=== PATIENT | female | born 1995 | race Caucasian/White ===

== ENCOUNTER 2018-06-24 14:27 | Emergency (ER) | payer SELFPAY ==
[~2018-06-24] VITALS: Wt 43.9 kg
--- NOTE | 2018-06-24 16:45 | ERD ---
ER Documentation Chief Complaint Chief Complaint R ARM PAIN AFTER FALL YETSERDAY HPI This is a 22-year-old otherwise healthy female presents for evaluation of her right arm injury, that she sustained yesterday she had a mechanical fall, was able to range her arm, however she had an abrasion over her right forearm, and feels pain along her elbow, she had no lacerations. She denies any numbness or tingling ROS All systems reviewed and are negative except as per history of present illness. Allergies Allergies: Coded Allergies: No Known Allergy (Unverified , 06/24/18) PMhx/Soc Medical and Surgical Hx: pt denies Medical Hx, pt denies Surgical Hx Hx Alcohol Use: No Hx Substance Use: No Hx Tobacco Use: No Smoking Status: Never smoker Physical Exam Vitals Vital Signs Date Temp Pulse Resp B/P (MAP) Pulse Ox O2 O2 Flow FiO2 Time Delivery Rate 06/24/18 98.3 78 18 113/65 99 14:30 (81) Physical Exam Const: No acute distress Head: Atraumatic Eyes: Normal Conjunctiva ENT: Normal External Ears, Nose and Mouth. Neck: Full range of motion. No meningismus. Resp: Clear to auscultation bilaterally Cardio: Regular rate and rhythm, no murmurs Abd: Soft, non tender, non distended. Normal bowel sounds Skin: No petechiae or rashes Back: No midline or flank tenderness Ext: Upper Extremity -right: Skin: No laceration, superficial abrasion noted along the medial forearm Compartments: Soft Motor: Full active range of motion shoulder/elbow/wrist/hand Sensation: Intact shoulder/pinky/middle finger/thumb web space Bones: Nontender humerus//forearm/wrist/hand, there is small amount of tenderness over the right medial epicondyle Snuffbox: Nontender Joints: No effusion Pulses/Perfusion: 2+ radial, Capillary refill < 2 seconds Neur: Awake and alert Psych: Normal Mood and Affect Procedures/MDM 21-year-old female presents for what appears to be an uncomplicated forearm abrasion, x-ray was negative for fracture, no neurovascular deficits, discussed findings with patient who is stable for discharge home, at discharge she was in no acute distress per Departure Diagnosis: Primary Impression: Pain of right arm Additional Impression: Injury of upper extremity Encounter type: initial encounter Laterality: right Qualified Codes: S49.91XA - Unspecified injury of right shoulder and upper arm, initial encounter Condition: Stable Patient Instructions: Contusion, Elbow ADIS GUNN MD Jun 24, 2018 16:45
[2018-06-24 17:31] VITALS: BP 118/65; PULSE 72; RESP 19
== END 2018-06-24 17:32 | disposition home or self-care (01) ==
LOC: FTE 14:27
DX: S50.811A Abrasion of right forearm, initial encounter (principal); W18.39XA Other fall on same level, initial encounter; Y92.9 Unspecified place or not applicable